=== PATIENT | female | born 1960 | race African-American/Black ===

== ENCOUNTER 2021-07-26 04:38 | Day surgery (SDC) | payer OTHER ==
[2021-07-25 16:12] VITALS: BMI 26.8
[2021-07-26 14:59] VITALS: BP 124/83; PULSE 68; TEMP 97.2
== END 2021-07-26 15:00 | disposition home or self-care (01) ==
LOC: MERGE 04:38 → JASU-ENDO 04:38
PROVIDERS: ATTEND Internal Medicine Gastroenterology
PROC: 0DB78ZX Excision of Stomach, Pylorus, Via Natural or Artificial Opening Endoscopic, Diagnostic (ICD-10-PCS; principal; 2021-07-26 14:45)
DX: K29.50 Unspecified chronic gastritis without bleeding (principal); E11.9 Type 2 diabetes mellitus without complications; I10 Essential (primary) hypertension
CPT/HCPCS: 88305-TC; 88342-TC

== ENCOUNTER 2022-07-02 21:22 | Emergency (ER) | payer OTHER ==
[2022-07-02 21:38] VITALS: BP 145/84; PULSE 72; RESP 16; TEMP 98.6; BMI 27.4
== END 2022-07-02 22:48 | disposition home or self-care (01) ==
LOC: FER 21:22
DX: R07.89 Other chest pain (principal)
CPT/HCPCS: 36415; 82550; 82553; 84484; 93005; 99284-25